=== PATIENT | male | born 1950 | race Caucasian/White ===

== ENCOUNTER → 2022-11-26 11:03 | Outpatient (BNVA) | payer MEDICARE, SELFPAY | PROVIDERS: Family Provider Internal Medicine; PCP Family Medicine; Referring Provider Family Medicine; Visit Provider Psychiatry & Neurology Neurology | DX: G25.0 Essential tremor; R06.81 Apnea, not elsewhere classified; Z85.46 Personal history of malignant neoplasm of prostate; Z92.3 Personal history of irradiation; I25.10 Atherosclerotic heart disease of native coronary artery without angina pectoris; H91.90 Unspecified hearing loss, unspecified ear | CPT/HCPCS: 36415; 82565; 84520; 99204 ==

== ENCOUNTER 2022-12-12 09:07 | Outpatient (CLI) | payer MEDICARE, SELFPAY ==
--- NOTE | 2022-12-12 09:30 | MR_ITS ---
WS: [id number] MRI HEAD WITH CONTRAST TECHNIQUE: Sagittal T1, T2 axial, T2 axial FLAIR, axial susceptibility weighted imaging, axial diffus ion weighted images, and coronal T2 images were obtained. Pre and post-T1 axial and post T1 coronal i mages. ADC and FSPGR images. CLINICAL INFORMATION: R25.1 - Tremor, unspecified COMPARISON: None. FINDINGS: No evidence of restricted diffusion to suggest acute ischemia. Ventricular system and basal cisterns are patent. Minimal small vessel changes. Moderate parenchymal volume loss. Parenchymal volume loss worse in the parietal lobes bilaterally. Normal posterior fossa. Normal vascular flow voids at the skull base. No extra axial fluid collection s. No evidence of mass or mass effect. Partial opacification of the ethmoid air cells. Mild mucosal t hickening in the maxillary sinuses. Normal parapharyngeal fat. Normal posterior nasopharynx. Mastoid air cells are well aerated. No hemosiderin on susceptibly weighted images. Normal optic chiasm and pituitary infundibulum. Normal cavernous sinuses and Meckel's cave. Mild symmetric atrophy temporal lobes and hippocampal formation s. No abnormal intracranial enhancement. Normal visualized dural venous sinuses. MR/MR head wo/w con [id number] IMPRESSION: 1. No evidence of restricted diffusion to suggest acute ischemia. 2. No hemosiderin on susceptibly weighted images. 3. Minimal small vessel changes. Moderate parenchymal volume loss. Volume loss worse in the parietal lobes bilaterally. 4. Mild symmetric atrophy to LEFT hippocampal formations. 5. Paranasal sinusitis worse in the ethmoid air cells. 6. No abnormal gadolinium enhancement.
== END 2022-12-12 09:08 | disposition home or self-care (01) ==
PROVIDERS: PCP Family Medicine; Visit Provider Psychiatry & Neurology Neurology
DX: R25.1 Tremor, unspecified (principal)
CPT/HCPCS: 70553; 99203; A9577

== ENCOUNTER → 2023-01-22 13:18 | Outpatient (BNVA) | payer MEDICARE, SELFPAY | PROVIDERS: PCP Family Medicine; Visit Provider Psychiatry & Neurology Neurology | DX: R25.1 Tremor, unspecified (principal); R06.81 Apnea, not elsewhere classified; I25.10 Atherosclerotic heart disease of native coronary artery without angina pectoris; Z85.46 Personal history of malignant neoplasm of prostate; Z92.3 Personal history of irradiation; H91.90 Unspecified hearing loss, unspecified ear; Z97.4 Presence of external hearing-aid | CPT/HCPCS: 99212 ==

== ENCOUNTER 2023-02-18 11:00 | Outpatient (CLI) | payer MEDICARE, SELFPAY | END 2023-02-18 11:01 | disposition home or self-care (01) | LOC: SLEEP 02-19 10:02 | PROVIDERS: PCP Family Medicine; Visit Provider Psychiatry & Neurology Neurology | DX: G47.33 Obstructive sleep apnea (adult) (pediatric) (principal) | CPT/HCPCS: G0399 ==

== ENCOUNTER → 2023-04-14 13:18 | Outpatient (BNVA) | payer MEDICARE, SELFPAY | PROVIDERS: PCP Family Medicine; Visit Provider Psychiatry & Neurology Neurology | DX: G47.30 Sleep apnea, unspecified (principal); G25.0 Essential tremor | CPT/HCPCS: 99212 ==